=== PATIENT | male | born 1960 | race African-American/Black ===

== ENCOUNTER 2019-06-14 10:42 | Emergency (ER) | payer SELFPAY ==
--- NOTE | 2019-06-14 11:10 | EDM.PDOC ---
ED HPI GENERAL MEDICAL PROBLEM - General Stated Complaint: URINATION PROBLEMS Time Seen by Provider: 06/14/19 10:50 Source of Information: Reports: Patient History Limitations: Reports: No Limitations - History of Present Illness INITIAL COMMENTS - FREE TEXT/NARRATIVE: Patient comes into the emergency department with complaint of urinary urgency and frequency. Patient states that he's been having symptoms for approximately 10 days. He denies any burning sensation, chest pain, SOB, visual changes, flank pain, fever, nausea, vomiting, abdominal pain, fruity odor from the mouth or peripheral edema. Patient states he denies any other concerns or complaints and states urgency frequency or his only symptoms. Patient denies any recent urinary concerns or illnesses. Patient hasn't gone to a primary care provider in many years. He denies taking any medications. Patient states he's been unable to work for a feels embarrassed having this frequency. He also notices at intermittent times a metallic taste in his mouth but believes it is mostly after eating. He denies any new sexual partners. He denies anything makes the sensation worse or better. Onset: Sudden Quality: Reports: Other Severity: Moderate Improves with: Reports: None Worsens with: Reports: None Context: Reports: Other Associated Symptoms: Reports: No Other Symptoms - Related Data Allergies Allergy/AdvReac Type Severity Reaction Status Date / Time No Known Allergies Allergy Verified 06/14/19 11:00 Home Meds: Home Meds . [No Known Home Meds] 06/14/19 [History] ED ROS GENERAL - Review of Systems Review Of Systems: See Below Constitutional: Reports: No Symptoms HEENT: Reports: No Symptoms Respiratory: Reports: No Symptoms Cardiovascular: Reports: No Symptoms Endocrine: Reports: No Symptoms GI/Abdominal: Reports: No Symptoms Musculoskeletal: Reports: No Symptoms Skin: Reports: No Symptoms Neurological: Reports: No Symptoms Psychiatric: Reports: No Symptoms Hematologic/Lymphatic: Reports: No Symptoms Immunologic: Reports: No Symptoms ED EXAM, RENAL/ - Physical Exam Exam: See Below Exam Limited By: No Limitations General Appearance: Alert, WD/WN, No Apparent Distress Head: Atraumatic, Normocephalic Neck: Normal Inspection, Supple, Non-Tender Respiratory/Chest: No Respiratory Distress, Lungs Clear, Normal Breath Sounds, No Accessory Muscle Use, Chest Non-Tender Cardiovascular: Normal Peripheral Pulses, Regular Rate, Rhythm, No Edema, No Rub GI/Abdominal: Normal Bowel Sounds, Soft, Non-Tender Back Exam: Normal Inspection, Full Range of Motion Extremities: Normal Inspection, Normal Range of Motion, Non-Tender, No Pedal Edema Neurological: Oriented Psychiatric: Normal Affect, Normal Mood Skin Exam: Warm, Dry, Intact Course - Vital Signs Last Recorded V/S: Last Vital Signs Temp 36.6 C 06/14/19 10:42 Pulse 108 H 06/14/19 10:42 Resp 18 06/14/19 10:42 BP 171/94 H 06/14/19 10:42 Pulse Ox 98 06/14/19 10:42 - Orders/Labs/Meds Labs: Laboratory Tests 06/14/19 Range/Units 11:07 Urine Color Light yellow (YELLOW) Urine Appearance Slightly cloudy H (CLEAR) Urine pH 5.5 (5.0-8.0) Ur Specific [place] <=1.005 Urine Protein Negative (NEGATIVE) mg/dL Urine Glucose (UA) 500 H (NEGATIVE) mg/dL Urine Ketones Negative (NEGATIVE) mg/dL Urine Occult Blood Negative (NEGATIVE) Urine Nitrite Negative (NEGATIVE) Urine Bilirubin Negative (NEGATIVE) Urine Urobilinogen 0.2 (0.2) EU/dL Ur Leukocyte Esterase Negative (NEGATIVE) Departure - Departure Time of Disposition: 11:30 Disposition: Home, Self-Care 01 Clinical Impression: Urinary frequency - Discharge Information *PRESCRIPTION DRUG MONITORING PROGRAM REVIEWED*: Not Applicable *COPY OF PRESCRIPTION DRUG MONITORING REPORT IN PATIENT DARVIN: Not Applicable Instructions: Urinary Frequency, Adult, Preventive Care for Young Adults, Male Additional Instructions: 1. Clinic phone numbers for [place]. [phone] [place], [phone] [facility] Please call and make a new patient appointment 2. Need to get in with your PCP and have PSA and other health maintenance exams checked 3. Reduce caffeine, alcohol, and anticholinergics 4. Activity and diet as tolerated 5. Call with any questions or concerns 6. Contact medicaid office and obtain information 7. Urine was collected today and it showed glucose but all signs of infection were negative. 8. Call with any questions or concerns Sepsis Event Note - Focused Exam Vital Signs: Vital Signs Temp Pulse Resp BP Pulse Ox 06/14/19 10:42 36.6 C 108 H 18 171/94 H 98 Date Exam was Performed: 06/14/19 Time Exam was Performed: 11:16 - Assessment/Plan Assessment:: 1. Urinary frequency Plan: 1. UA collected emergency department 2. Education discussed with the patient the need to get in with your PCP and have PSA and other health maintenance exams checked. He has not had a colonoscopy completed or been evaluated for diabetes 3. Reduce caffeine, alcohol, and anticholinergics 4. Activity and diet as tolerated 5. Information was provided regarding clinic phone numbers for PCP referral 6. patient will be presenting to complete his medicaid renewal for it lapsed on Jun 05. 7. All questions and concerns were addressed prior to patient's discharge
== END 2019-06-14 11:40 | disposition home or self-care (01) ==
LOC: VM.ED 10:42
DX: R35.0 Frequency of micturition (principal)
CPT/HCPCS: 81003; 99283; 99283-GF